=== PATIENT | female | born 1970 | race Caucasian/White ===

== ENCOUNTER → 2017-08-25 | Outpatient (CLI) | payer MEDICARE, OTHER ==
[~2017-08-25] MED LIST: ALBU90OI INH; ALPR.5 PO; AMOX500 PO; BUSP15 PO; CEFD300 PO; CHOL10002 PO; CODBUTACEC PO; CYCL10 PO; Compazine10 MG PO; Cymbalta30 MG; DOXY100 PO; DULO60; ESCI10 PO; GABA300 PO; GABA600 PO; HYDACE5; HYDACE5325 PO; HYDSUL200 PO; Hair, Skin & N1 EACH PO; INCARCERATION; MELO7.5 PO; META800 PO; METR500 PO; NAPR500 PO; NAPR550 PO; OXYACE5T PO; OXYACE7.5T PO; OXYC15ER; OXYC5 PO; PROB500 PO; PROM25 PO; RXHYDMOR2 PO; RXSULTRIDS PO; SULTRIDS PO; SULTRISS PO; Senna8.6 M1; TEMA15 PO; TOPI100 PO; TOPI50 PO; TRAM50 PO; VENL150ER PO; [UNRECOGNIZED DRUG - REMARK]
== END ==
LOC: LAB SHORT 11:51 → LAB EV 11:51
DX: M32.9 Systemic lupus erythematosus, unspecified (principal)
CPT/HCPCS: 87070; 87077; 87147; 87186; 87205; 87529

== ENCOUNTER 2017-11-16 08:49 | Emergency (ER) | payer MEDICARE, OTHER ==
[~2017-11-16] VITALS: Ht 165.1 cm; Wt 63.5 kg
[2017-11-16 10:08] LABS: BASOPHILS PERCENT AUTO 3 % (0-2); EOSINOPHILS ABSOLUTE AUTO 0.28 K/mm3 (0.00-0.68); EOSINOPHILS PERCENT AUTO 8 % (0-6); Hematocrit 42.7 % (33.0-51.0); Hemoglobin 14.1 g/dL (11.5-16.0); IMMATURE GRAN PERCENT AUTO 0 % (0-1); LYMPHOCYTES ABSOLUTE AUTO 0.86 K/mm3 (0.84-5.20); LYMPHOCYTES PERCENT AUTO 26 % (21-46); MONOCYTES ABSOLUTE AUTO 0.35 K/mm3 (0.16-1.47); MONOCYTES PERCENT AUTO 11 % (4-13); Mean Corpuscular HGB 32.6 pg (26.0-34.0); Mean Corpuscular Volume 99 fL (80-100); Mean Platelet Volume 10.2 fL (9.1-12.4); NEUTROPHILS ABSOLUTE AUTO 1.75 K/mm3 (1.96-9.15); NEUTROPHILS PERCENT AUTO 52 % (41-73); Platelet Count 270 K/mm3 (150-400); RDW Coefficient Variation 12.5 % (11.7-14.2); RDW Standard Deviation 46.2 fL (35.1-46.3); Red Blood Cell Count 4.32 M/mm3 (3.80-5.20); White Blood Cell Count 3.34 K/mm3 (4.00-11.30)
[2017-11-16] MEDS ORDERED: ASPI81CH PO (10:14)
[2017-11-16] MEDS ORDERED: OXYC5 PO (10:14)
[2017-11-16 10:15] LABS: Alanine Aminotransfer (ALT/SGP 36 U/L (12-78); Albumin, Blood 3.7 g/dL (3.4-5.0); Albumin/Globulin Ratio 1.3 (0.8-1.8); Alk Phos 65 U/L (50-136); Anion Gap 7 mmol/L (6-16); Aspartate Aminotrans (AST/SGOT 46 U/L (12-37); Bilirubin, Total 0.4 mg/dL (0.1-1.0); Blood Urea Nitrogen 8 mg/dL (8-24); CO2, Blood 28 mmol/L (21-32); Calcium, Blood 8.7 mg/dL (8.5-10.1); Chloride, Blood 107 mmol/L (98-108); Creatinine, Blood 0.67 mg/dL (0.40-1.00); Globulin, Blood 2.8 g/dL (2.2-4.0); Glomerular Filtration Rate >60 (60-); Glucose, Blood 86 mg/dL (70-99); Potassium, Blood 3.7 mmol/L (3.5-5.5); Sodium, Blood 142 mmol/L (136-145); Total Protein, Blood 6.5 g/dL (6.4-8.2); Troponin I <0.015 ng/mL (0.000-0.040)
[2017-11-16] MEDS ORDERED: Naprosyn500 MG PO (10:32)
== END 2017-11-16 10:52 | disposition home or self-care (01) ==
LOC: ER 08:49
PROVIDERS: Internal Medicine
DX: R53.83 Other fatigue (principal); R53.1 Weakness; M94.0 Chondrocostal junction syndrome [Tietze]; Z88.8 Allergy status to other drugs, medicaments and biological substances; Z79.899 Other long term (current) drug therapy; G43.909 Migraine, unspecified, not intractable, without status migrainosus; F32.9 Major depressive disorder, single episode, unspecified; F41.9 Anxiety disorder, unspecified; Z87.891 Personal history of nicotine dependence
CPT/HCPCS: 36415; 71046; 80053; 84484; 85025; 93005; 93010; 99283

== ENCOUNTER → 2018-06-22 | Outpatient (CLI) | payer MEDICARE, OTHER ==
[~2018-06-22] MED LIST changes: +ASPI81CH PO; +NARCAN4 MG; +Naprosyn500 MG PO; +Pantoprazole So40 MG PO
[2018-06-22 14:20] LABS: Alanine Aminotransfer (ALT/SGP 19 U/L (12-78); Albumin, Blood 3.7 g/dL (3.4-5.0); Albumin/Globulin Ratio 1.5 (0.8-1.8); Alk Phos 74 U/L (50-136); Anion Gap 7 mmol/L (6-16); Aspartate Aminotrans (AST/SGOT 18 U/L (12-37); Bilirubin, Total 0.4 mg/dL (0.1-1.0); Blood Urea Nitrogen 18 mg/dL (8-24); Bun/Creatinine Ratio 20.6 (12.0-20.0); CO2, Blood 28 mmol/L (21-32); Chloride, Blood 107 mmol/L (98-108); Creatinine, Blood 0.88 mg/dL (0.40-1.00); Globulin, Blood 2.5 g/dL (2.2-4.0); Glomerular Filtration Rate >60 (60-); Glucose, Blood 87 mg/dL (70-99); Potassium, Blood 3.9 mmol/L (3.5-5.5); Sodium, Blood 142 mmol/L (136-145); Total Protein, Blood 6.2 g/dL (6.4-8.2)
== END ==
LOC: LAB SHORT 13:45 → LAB 13:45
PROVIDERS: Nurse Practitioner Psychiatric/Mental Health
DX: R59.0 Localized enlarged lymph nodes (principal)
CPT/HCPCS: 80053

== ENCOUNTER 2018-07-03 05:07 | Emergency (ER) | payer MEDICARE, OTHER ==
[~2018-07-03] VITALS: Ht 165.1 cm; Wt 63.5 kg
[~2018-07-03 05:07] MED LIST changes: -NARCAN4 MG; -Pantoprazole So40 MG PO
[2018-07-03] MEDS ORDERED: Pantoprazole So40 MG PO (05:29)
[2018-07-03] MEDS ORDERED: PROM25 PO (05:29)
[2018-07-03] MEDS ORDERED: GABA300 PO (05:29)
[2018-07-03 06:07] LABS: BASOPHILS ABSOLUTE AUTO 0.08 K/mm3 (0.00-0.23); BASOPHILS PERCENT AUTO 2 % (0-2); EOSINOPHILS ABSOLUTE AUTO 0.26 K/mm3 (0.00-0.68); EOSINOPHILS PERCENT AUTO 6 % (0-6); Hematocrit 38.8 % (33.0-51.0); Hemoglobin 12.5 g/dL (11.5-16.0); IMMATURE GRAN PERCENT AUTO 0 % (0-1); LYMPHOCYTES ABSOLUTE AUTO 1.02 K/mm3 (0.84-5.20); LYMPHOCYTES PERCENT AUTO 25 % (21-46); MONOCYTES ABSOLUTE AUTO 0.49 K/mm3 (0.16-1.47); MONOCYTES PERCENT AUTO 12 % (4-13); Mean Corpuscular HGB 29.7 pg (26.0-34.0); Mean Corpuscular HGB Conc 32.2 g/dL (31.5-36.5); Mean Corpuscular Volume 92 fL (80-100); NEUTROPHILS ABSOLUTE AUTO 2.26 K/mm3 (1.96-9.15); NEUTROPHILS PERCENT AUTO 55 % (41-73); Platelet Count 257 K/mm3 (150-400); RDW Coefficient Variation 12.2 % (11.7-14.2); RDW Standard Deviation 41.1 fL (35.1-46.3); Red Blood Cell Count 4.21 M/mm3 (3.80-5.20); White Blood Cell Count 4.11 K/mm3 (4.00-11.30)
[2018-07-03 06:21] LABS: Alanine Aminotransfer (ALT/SGP 17 U/L (12-78); Albumin, Blood 3.3 g/dL (3.4-5.0); Albumin/Globulin Ratio 1.1 (0.8-1.8); Alk Phos 66 U/L (50-136); Anion Gap 7 mmol/L (6-16); Aspartate Aminotrans (AST/SGOT 18 U/L (12-37); Bilirubin, Total 0.5 mg/dL (0.1-1.0); Blood Urea Nitrogen 14 mg/dL (8-24); Bun/Creatinine Ratio 15.9 (12.0-20.0); CO2, Blood 27 mmol/L (21-32); Calcium, Blood 8.9 mg/dL (8.5-10.1); Chloride, Blood 108 mmol/L (98-108); Creatinine, Blood 0.88 mg/dL (0.40-1.00); Globulin, Blood 2.9 g/dL (2.2-4.0); Glomerular Filtration Rate >60 (60-); Glucose, Blood 83 mg/dL (70-99); Potassium, Blood 3.9 mmol/L (3.5-5.5); Sodium, Blood 142 mmol/L (136-145); Total Protein, Blood 6.2 g/dL (6.4-8.2)
[2018-07-03 07:22] LABS: Source, Urine Clean Catch
[2018-07-03 07:25] LABS: Bilirubin, Urine Neg (Neg); Blood, Urine Neg (Neg); Glucose Qualitative, Urine Neg (Neg); Ketones, Urine Neg (Neg); Leukocyte Esterase, Urine Neg (Neg); Nitrite, Urine Neg (Neg); Protein, Urine Neg (Neg); Specific Gravity, Urine 1.005 (1.003-1.022); Urobilinogen, Urine NORM (Normal)
[2018-07-03 07:30] LABS: Appearance, Urine Clear (Clear); Color, Urine Yellow (P-Yellow)
[2018-07-03] MEDS ORDERED: NARCAN4 MG (08:13)
== END 2018-07-03 08:20 | disposition home or self-care (01) ==
LOC: ER 05:07
PROVIDERS: Emergency Medicine
DX: R10.31 Right lower quadrant pain (principal); R59.0 Localized enlarged lymph nodes; Z88.8 Allergy status to other drugs, medicaments and biological substances; Z79.899 Other long term (current) drug therapy; F32.9 Major depressive disorder, single episode, unspecified; F41.9 Anxiety disorder, unspecified; Z87.891 Personal history of nicotine dependence
CPT/HCPCS: 36415; 80053; 81003; 85025; 96374; 99283-25; J1885

== ENCOUNTER 2018-07-22 22:25 | Emergency (ER) | payer MEDICARE, OTHER ==
[~2018-07-22] VITALS: Ht 165.1 cm; Wt 61.7 kg
[~2018-07-22 22:25] MED LIST changes: +NARCAN4 MG; +Pantoprazole So40 MG PO
[2018-07-22 23:10] LABS: BASOPHILS ABSOLUTE AUTO 0.12 K/mm3 (0.00-0.23); BASOPHILS PERCENT AUTO 2 % (0-2); EOSINOPHILS ABSOLUTE AUTO 0.27 K/mm3 (0.00-0.68); EOSINOPHILS PERCENT AUTO 4 % (0-6); Hematocrit 42.6 % (33.0-51.0); Hemoglobin 14.1 g/dL (11.5-16.0); IMMATURE GRAN ABSOLUTE AUTO 0.02 K/mm3 (0.00-0.10); IMMATURE GRAN PERCENT AUTO 0 % (0-1); LYMPHOCYTES ABSOLUTE AUTO 1.98 K/mm3 (0.84-5.20); LYMPHOCYTES PERCENT AUTO 31 % (21-46); MONOCYTES PERCENT AUTO 11 % (4-13); Mean Corpuscular HGB Conc 33.1 g/dL (31.5-36.5); Mean Corpuscular Volume 91 fL (80-100); Mean Platelet Volume 9.7 fL (9.1-12.4); NEUTROPHILS ABSOLUTE AUTO 3.33 K/mm3 (1.96-9.15); NEUTROPHILS PERCENT AUTO 52 % (41-73); Platelet Count 339 K/mm3 (150-400); RDW Coefficient Variation 11.7 % (11.7-14.2); RDW Standard Deviation 38.9 fL (35.1-46.3); White Blood Cell Count 6.42 K/mm3 (4.00-11.30)
[2018-07-22 23:38] LABS: Alanine Aminotransfer (ALT/SGP 21 U/L (12-78); Albumin/Globulin Ratio 1.2 (0.8-1.8); Alk Phos 94 U/L (50-136); Anion Gap 6 mmol/L (6-16); Aspartate Aminotrans (AST/SGOT 29 U/L (12-37); Bilirubin, Total 0.3 mg/dL (0.1-1.0); Blood Urea Nitrogen 11 mg/dL (8-24); Bun/Creatinine Ratio 14.4 (12.0-20.0); CO2, Blood 28 mmol/L (21-32); Calcium, Blood 9.5 mg/dL (8.5-10.1); Chloride, Blood 104 mmol/L (98-108); Creatinine, Blood 0.77 mg/dL (0.40-1.00); Globulin, Blood 3.4 g/dL (2.2-4.0); Glomerular Filtration Rate >60 (60-); Glucose, Blood 83 mg/dL (70-99); Potassium, Blood 3.9 mmol/L (3.5-5.5); Sodium, Blood 138 mmol/L (136-145); Total Protein, Blood 7.4 g/dL (6.4-8.2)
== END 2018-07-23 03:16 | disposition home or self-care (01) ==
LOC: ER 22:25
PROVIDERS: Emergency Medicine
DX: C21.8 Malignant neoplasm of overlapping sites of rectum, anus and anal canal (principal); C78.7 Secondary malignant neoplasm of liver and intrahepatic bile duct; F32.9 Major depressive disorder, single episode, unspecified; F41.9 Anxiety disorder, unspecified; Z88.8 Allergy status to other drugs, medicaments and biological substances; Z88.5 Allergy status to narcotic agent; Z79.899 Other long term (current) drug therapy; Z87.891 Personal history of nicotine dependence
CPT/HCPCS: 36415; 71046; 71260; 80053; 83690; 83880; 84484; 85025; 85379; 93005; 93010; 96374-59; 96375-59; 99285-25; J1170; J1885; Q9967

== ENCOUNTER 2018-08-01 17:43 | Emergency (ER) | payer MEDICARE, OTHER | END 2018-08-01 18:26 | disposition left against medical advice (07) | LOC: ER 17:43 | DX: Z53.21 Procedure and treatment not carried out due to patient leaving prior to being seen by health care provider (principal) ==

== ENCOUNTER 2018-08-05 15:18 | Emergency (ER) | payer MEDICARE, OTHER | END 2018-08-05 15:45 | disposition left against medical advice (07) | LOC: ER 15:18 | DX: Z53.21 Procedure and treatment not carried out due to patient leaving prior to being seen by health care provider (principal) ==

== ENCOUNTER 2018-11-16 07:14 | Emergency (ER) | payer MEDICARE, OTHER ==
[~2018-11-16] VITALS: Ht 165.1 cm; Wt 59.0 kg
[2018-11-16] MEDS ORDERED: DEXA4 PO (07:40)
[2018-11-16 07:53] LABS: BASOPHILS ABSOLUTE AUTO 0.08 K/mm3 (0.00-0.23); BASOPHILS PERCENT AUTO 2 % (0-2); EOSINOPHILS ABSOLUTE AUTO 0.03 K/mm3 (0.00-0.68); EOSINOPHILS PERCENT AUTO 1 % (0-6); Hematocrit 36.4 % (33.0-51.0); Hemoglobin 12.3 g/dL (11.5-16.0); IMMATURE GRAN ABSOLUTE AUTO 0.02 K/mm3 (0.00-0.10); IMMATURE GRAN PERCENT AUTO 0 % (0-1); LYMPHOCYTES ABSOLUTE AUTO 0.51 K/mm3 (0.84-5.20); LYMPHOCYTES PERCENT AUTO 9 % (21-46); MONOCYTES ABSOLUTE AUTO 0.61 K/mm3 (0.16-1.47); MONOCYTES PERCENT AUTO 11 % (4-13); Mean Corpuscular HGB 32.6 pg (26.0-34.0); Mean Corpuscular HGB Conc 33.8 g/dL (31.5-36.5); Mean Corpuscular Volume 97 fL (80-100); Mean Platelet Volume 9.9 fL (9.1-12.4); NEUTROPHILS ABSOLUTE AUTO 4.24 K/mm3 (1.96-9.15); NEUTROPHILS PERCENT AUTO 77 % (41-73); Platelet Count 204 K/mm3 (150-400); RDW Coefficient Variation 15.3 % (11.7-14.2); Red Blood Cell Count 3.77 M/mm3 (3.80-5.20); White Blood Cell Count 5.49 K/mm3 (4.00-11.30)
[2018-11-16 07:57] LABS: Source, Urine Clean Catch
[2018-11-16 08:01] LABS: Bilirubin, Urine Neg (Neg); Blood, Urine Neg (Neg); Glucose Qualitative, Urine Neg (Neg); Ketones, Urine 3+ (Neg); Leukocyte Esterase, Urine 1+ (Neg); Nitrite, Urine Neg (Neg); Protein, Urine 1+ (Neg); Urobilinogen, Urine NORM (Normal)
[2018-11-16 08:09] LABS: Appearance, Urine Clear (Clear); Color, Urine Yellow (P-Yellow)
[2018-11-16 08:10] LABS: Bacteria Rare /hpf; Red Blood Cells, Urine 0-2 /hpf (0-2); Squamous Epithelial Cells Rare /hpf (Few)
[2018-11-16 08:11] LABS: Mucus Light (0-Heavy)
[2018-11-16 08:13] LABS: Alanine Aminotransfer (ALT/SGP 29 U/L (12-78); Albumin, Blood 4.3 g/dL (3.4-5.0); Albumin/Globulin Ratio 1.2 (0.8-1.8); Alk Phos 113 U/L (50-136); Anion Gap 5 mmol/L (6-16); Aspartate Aminotrans (AST/SGOT 22 U/L (12-37); Bilirubin, Total 0.7 mg/dL (0.1-1.0); Blood Urea Nitrogen 8 mg/dL (8-24); Bun/Creatinine Ratio 11.8 (12.0-20.0); CO2, Blood 29 mmol/L (21-32); Calcium, Blood 9.6 mg/dL (8.5-10.1); Chloride, Blood 106 mmol/L (98-108); Creatinine, Blood 0.68 mg/dL (0.40-1.00); Globulin, Blood 3.5 g/dL (2.2-4.0); Glomerular Filtration Rate >60 (60-); Glucose, Blood 84 mg/dL (70-99); Potassium, Blood 3.4 mmol/L (3.5-5.5); Sodium, Blood 140 mmol/L (136-145); Total Protein, Blood 7.8 g/dL (6.4-8.2)
== END 2018-11-16 09:10 | disposition home or self-care (01) ==
LOC: ER 07:14
PROVIDERS: Emergency Medicine
DX: R10.13 Epigastric pain (principal); C22.8 Malignant neoplasm of liver, primary, unspecified as to type; Z88.8 Allergy status to other drugs, medicaments and biological substances; Z79.52 Long term (current) use of systemic steroids; G43.909 Migraine, unspecified, not intractable, without status migrainosus; F32.9 Major depressive disorder, single episode, unspecified; F41.9 Anxiety disorder, unspecified; Z87.891 Personal history of nicotine dependence
CPT/HCPCS: 36415; 80053; 81001; 83690; 85025; 87086; 96361; 96374; 99284-25; J1885; J7030

== ENCOUNTER 2018-12-23 18:52 | Emergency (ER) | payer MEDICARE, OTHER ==
[~2018-12-23] VITALS: Ht 165.1 cm; Wt 53.1 kg
[~2018-12-23 18:52] MED LIST changes: +DEXA4 PO
[2018-12-23 20:05] LABS: BASOPHILS ABSOLUTE AUTO 0.09 K/mm3 (0.00-0.23); BASOPHILS PERCENT AUTO 1 % (0-2); EOSINOPHILS ABSOLUTE AUTO 0.47 K/mm3 (0.00-0.68); EOSINOPHILS PERCENT AUTO 5 % (0-6); Hematocrit 30.6 % (33.0-51.0); Hemoglobin 9.8 g/dL (11.5-16.0); IMMATURE GRAN ABSOLUTE AUTO 0.03 K/mm3 (0.00-0.10); IMMATURE GRAN PERCENT AUTO 0 % (0-1); LYMPHOCYTES ABSOLUTE AUTO 0.76 K/mm3 (0.84-5.20); LYMPHOCYTES PERCENT AUTO 8 % (21-46); MONOCYTES ABSOLUTE AUTO 1.35 K/mm3 (0.16-1.47); MONOCYTES PERCENT AUTO 14 % (4-13); Mean Corpuscular HGB 29.6 pg (26.0-34.0); Mean Corpuscular Volume 92 fL (80-100); Mean Platelet Volume 9.3 fL (9.1-12.4); NEUTROPHILS ABSOLUTE AUTO 7.16 K/mm3 (1.96-9.15); NEUTROPHILS PERCENT AUTO 73 % (41-73); Platelet Count 438 K/mm3 (150-400); RDW Coefficient Variation 15.1 % (11.7-14.2); RDW Standard Deviation 50.9 fL (35.1-46.3); Red Blood Cell Count 3.31 M/mm3 (3.80-5.20); White Blood Cell Count 9.86 K/mm3 (4.00-11.30)
[2018-12-23] MEDS ORDERED: OXYC10TA19 PO (20:19)
[2018-12-23] MEDS ORDERED: IBUP400 PO (20:20)
[2018-12-23 20:26] LABS: Alanine Aminotransfer (ALT/SGP 54 U/L (12-78); Albumin, Blood 2.8 g/dL (3.4-5.0); Albumin/Globulin Ratio 0.6 (0.8-1.8); Alk Phos 210 U/L (50-136); Anion Gap 8 mmol/L (6-16); Aspartate Aminotrans (AST/SGOT 64 U/L (12-37); Bilirubin, Total 0.5 mg/dL (0.1-1.0); Blood Urea Nitrogen 13 mg/dL (8-24); Bun/Creatinine Ratio 19.6 (12.0-20.0); CO2, Blood 26 mmol/L (21-32); Calcium, Blood 8.9 mg/dL (8.5-10.1); Chloride, Blood 100 mmol/L (98-108); Creatinine, Blood 0.66 mg/dL (0.40-1.00); Globulin, Blood 4.4 g/dL (2.2-4.0); Glomerular Filtration Rate >60 (60-); Glucose, Blood 105 mg/dL (70-99); Potassium, Blood 4.1 mmol/L (3.5-5.5); Sodium, Blood 134 mmol/L (136-145); Total Protein, Blood 7.2 g/dL (6.4-8.2)
[2018-12-23 21:46] LABS: Source, Urine Clean Catch
[2018-12-23 21:50] LABS: Bilirubin, Urine Neg (Neg); Blood, Urine Neg (Neg); Glucose Qualitative, Urine Neg (Neg); Ketones, Urine 1+ (Neg); Leukocyte Esterase, Urine 1+ (Neg); Nitrite, Urine Neg (Neg); Protein, Urine Neg (Neg); Specific Gravity, Urine 1.015 (1.003-1.022); Urobilinogen, Urine NORM (Normal)
[2018-12-23 21:58] LABS: Appearance, Urine Clear (Clear); Color, Urine Yellow (P-Yellow)
[2018-12-23 21:59] LABS: Bacteria Mod /hpf; Red Blood Cells, Urine 0-2 /hpf (0-2); Squamous Epithelial Cells Few /hpf (Few); White Blood Cells, Urine 0-2 /hpf (0-5)
[2018-12-24 00:19] LABS: Adenovirus Not Detected (NOT DETECT); Bordetella pertussis Not Detected (NOT DETECT); Chlamydophila pneumoniae Not Detected (NOT DETECT); Coronavirus 229E Not Detected (NOT DETECT); Coronavirus HKU1 Not Detected (NOT DETECT); Coronavirus NL63 Not Detected (NOT DETECT); Coronavirus OC43 Not Detected (NOT DETECT); Human Metapneumovirus Not Detected (NOT DETECT); Human Rhinovirus/Enterovirus Not Detected (NOT DETECT); Influenza A Not Detected (NOT DETECT); Influenza A/2009-H1 Not Detected (NOT DETECT); Influenza A/H1 Not Detected (NOT DETECT); Influenza A/H3 Not Detected (NOT DETECT); Influenza B Not Detected (NOT DETECT); Mycoplasma pneumoniae Not Detected (NOT DETECT); Parainfluenza Virus 1 Not Detected (NOT DETECT); Parainfluenza Virus 2 Not Detected (NOT DETECT); Parainfluenza Virus 3 Not Detected (NOT DETECT); Parainfluenza Virus 4 Not Detected (NOT DETECT); Respiratory Syncytial Virus Not Detected (NOT DETECT)
== END 2018-12-24 00:01 | disposition home or self-care (01) ==
LOC: ER 18:52
PROVIDERS: Emergency Medicine
DX: E86.0 Dehydration (principal); Z85.038 Personal history of other malignant neoplasm of large intestine; Z88.8 Allergy status to other drugs, medicaments and biological substances
CPT/HCPCS: 0099U; 36415; 71046; 74177; 80053; 81001; 83605; 84145; 85025; 87040; 87086; 93005; 93010; 96361; 96374-59; 96375; 99284-25; J1170; J2550; J7030; Q9967

== ENCOUNTER 2019-02-02 18:20 | Inpatient (IN) | payer MEDICARE, OTHER ==
[~2019-02-02] VITALS: Ht 165.1 cm; Wt 54.5 kg
[~2019-02-02 18:20] MED LIST changes: +IBUP400 PO; +OXYC10TA19 PO
[2019-02-02 18:46] LABS: BASOPHILS ABSOLUTE AUTO 0.06 K/mm3 (0.00-0.23); BASOPHILS PERCENT AUTO 0 % (0-2); EOSINOPHILS PERCENT AUTO 2 % (0-6); Hematocrit 25.7 % (33.0-51.0); Hemoglobin 8.1 g/dL (11.5-16.0); IMMATURE GRAN ABSOLUTE AUTO 1.14 K/mm3 (0.00-0.10); IMMATURE GRAN PERCENT AUTO 3 % (0-1); LYMPHOCYTES ABSOLUTE AUTO 1.51 K/mm3 (0.84-5.20); LYMPHOCYTES PERCENT AUTO 4 % (21-46); MONOCYTES ABSOLUTE AUTO 1.82 K/mm3 (0.16-1.47); MONOCYTES PERCENT AUTO 5 % (4-13); Mean Corpuscular HGB 26.9 pg (26.0-34.0); Mean Corpuscular HGB Conc 31.5 g/dL (31.5-36.5); Mean Corpuscular Volume 85 fL (80-100); Mean Platelet Volume 11.7 fL (9.1-12.4); NEUTROPHILS ABSOLUTE AUTO 30.37 K/mm3 (1.96-9.15); NEUTROPHILS PERCENT AUTO 85 % (41-73); Platelet Count 215 K/mm3 (150-400); RDW Coefficient Variation 22.3 % (11.7-14.2); RDW Standard Deviation 67.2 fL (35.1-46.3); Red Blood Cell Count 3.01 M/mm3 (3.80-5.20)
[2019-02-02] MEDS ORDERED: PROC5 PO (19:03)
[2019-02-02] MEDS ORDERED: LORA.5 PO (19:03)
[2019-02-02] MEDS ORDERED: Protonix40 MG PO (19:03)
[2019-02-02] MEDS ORDERED: DEXA4 PO (19:03)
[2019-02-02 19:15] LABS: Alanine Aminotransfer (ALT/SGP 105 U/L (12-78); Albumin, Blood 1.9 g/dL (3.4-5.0); Albumin/Globulin Ratio 0.5 (0.8-1.8); Alk Phos 519 U/L (50-136); Anion Gap 9 mmol/L (6-16); Aspartate Aminotrans (AST/SGOT 100 U/L (12-37); Bilirubin, Total 1.6 mg/dL (0.1-1.0); Blood Urea Nitrogen 18 mg/dL (8-24); Bun/Creatinine Ratio 31.9 (12.0-20.0); CO2, Blood 26 mmol/L (21-32); Calcium, Blood 9.8 mg/dL (8.5-10.1); Chloride, Blood 101 mmol/L (98-108); Creatinine, Blood 0.56 mg/dL (0.40-1.00); Globulin, Blood 3.8 g/dL (2.2-4.0); Glomerular Filtration Rate >60 (60-); Glucose, Blood 91 mg/dL (70-99); Potassium, Blood 4.5 mmol/L (3.5-5.5); Sodium, Blood 136 mmol/L (136-145); Total Protein, Blood 5.7 g/dL (6.4-8.2)
[2019-02-02] MEDS ORDERED: ASCO500 PO (19:41)
[2019-02-02] MEDS ORDERED: MIRALAX17 GM PO (19:46)
[2019-02-02] MEDS ORDERED: Thera-M1 EACH PO (19:47)
[2019-02-02] MEDS ORDERED: VITAMIN D5000 UNI1 PO (19:48)
[2019-02-02] MEDS ORDERED: [UNRECOGNIZED DRUG - OTHER] PO (19:48)
[2019-02-02] MEDS ORDERED: Selenium50 MCG PO (19:50)
[2019-02-02] MEDS ORDERED: RESVERATROL PL1 EACH PO (19:51)
[2019-02-02] MEDS ORDERED: SAM E (19:52)
[2019-02-02] MEDS ORDERED: St. John's Wor300 M1 PO (19:54)
[2019-02-02] MEDS ORDERED: MAGNESIUM100 MG PO (19:55)
[2019-02-02 21:50] LABS: Source, Urine Catheter
[2019-02-02 21:53] LABS: Blood, Urine Neg (Neg); Glucose Qualitative, Urine Neg (Neg); Ketones, Urine 1+ (Neg); Leukocyte Esterase, Urine 1+ (Neg); Nitrite, Urine Neg (Neg); Protein, Urine 2+ (Neg); Urobilinogen, Urine 3+ (Normal)
[2019-02-02 21:55] LABS: Appearance, Urine Hazy (Clear); Bilirubin, Urine 1+ (Neg); Color, Urine Amber (P-Yellow)
[2019-02-02 22:00] LABS: Amorphous Light (0-Heavy); Bacteria Few /hpf; Mucus Mod (0-Heavy); Red Blood Cells, Urine Not Seen /hpf (0-2); Squamous Epithelial Cells Rare /hpf (Few)
--- NOTE | 2019-02-03 01:00 | NUR ---
PROVIDER CALLED ABOUT PAIN PT CONTINUES TO BE IN SIGNIFICANT PAIN. PROVIDER CALLED FOR MEDS FOR BACK SPASMS. ORDERS GIVEN. SEE EMAR.
--- NOTE | 2019-02-03 04:00 | NUR ---
HARNESS INSPECTOR PUMP ORDERED/STARTED PT CONTINUED TO BE IN SEVERE PAIN CALLING OUT IN ROOM. PROVIDER CONSULTED FOR FURTHER PAIN TREATMENT. HARNESS INSPECTOR PUMPED ORDERED AND SET UP. PT EDUCATED ON HARNESS INSPECTOR LIMITS AND HOW TO UTILIZE THE SELF DOSING BUTTON, AND ABOUT TIME OUTS. FAMILY IN ROOM ALSO EDUCATED ABOUT PT BEING THE ONLY ONE TO UTILIZE PAIN BUTTON. PT VVS AT THIS TIME. BP REMAINS LOW BUT MAP REMAINS >70. PT REPORTS PAIN STARTING TO DECREASED TO 9/10.
--- NOTE | 2019-02-03 06:34 | NUR ---
SHIFT SUMMARY PT SLEEPING IN ROOM AT THIS TIME. PT HAD NO ACUTE CHANGES IN STATUS BEYOND SEVER PAIN CONTROL. PT WAS PLACED ON A POT RUNNER MORPHINE PUMP IN ATTEMPT TO BETTER CONTROL PAIN. PT HAS STATED IN ROOM MULTIPLE TIMES "I AM READY, I DONT WANT TO FIGHT ANYMORE". PT EDUCATED THAT PALATIVE CARE WOULD BE COMING TO VISIT PT IN THE AM TO HELP PT MAKE FURTHER HEALTHCARE DECISIONS. RESP EVEN UNLABORED ON 2L NC W/ SATS >92%. O2 WAS PLACED FOR PT COMFORT, PT REPORTED BEING IN SO MUCH PAIN IT WAS HARD TO BREATH. FAMILY REMAINS IN ROOM. CALL LIGHT IS IN REACH.
--- NOTE | 2019-02-03 09:03 | NUR ---
Offered to reposition pt, she declined at this time due to pain and just getting comfortable. RN notified. Will offer again soon. Pt has call light in reach.
--- NOTE | 2019-02-03 09:45 | NUR ---
Pt visit this AM. Pt is resting in bed upon arrival. Pt's mother jiim and friends Tanisha and Brianna are present during visit. Pt reports 10/10 pain. She denies dyspnea and anxiety. Pt states "I'm ready to stop suffering" and "I'm ready for the end". Assessed her meaning of this statement and Pt reports she is ready for hospice. Educated on hospice and comfort care philosophy with V/U made by Pt. Due to Pt's unmanaged pain family prefered to have more comprehensive visit after orders have been placed and Pt is more comfortable. Family also requests for supervisor safety deposit visit. Spoke with bedside nurse More and discussed case. Spoke with caremanager Newell and discussed case. Spoke with Dr Mary and discussed case. Placed comfort care order, comfort care order set, added MS Contin 15mg PO Q 12 hours for pain, and discontinued Dilaudid and Valium per V/O from Dr Mary. Spoke with Palliative Care Egg Processing Supervisorsherine Camp and discussed case including request for sophie visit. Plan: Will contact [facility] and collaborate. Palliative Care will remain available for symptom management.
--- NOTE | 2019-02-03 10:58 | NUR ---
Patientis lying in bed and is weak and soft spoken. Patient's has 6 family members and friends bedside. Patient immediately shares that she is dying and is fearful that God will accept her. Upon learning about her belief system and her thoughts on the afterlife, I volunteer to pray with her. Patient agrees to prayer. I lead patient in a "sinner's prayer" and then pray for patient. I then pray for the tearful family and friends that are present. Patient responds with a statement that she feels much more peace and a family member says that she thought it was beautifiul. I will continue to remain available to patient and family.
--- NOTE | 2019-02-03 12:20 | NUR ---
pallative care and sophie has been in to see pt. going to change to comfort care at this time. pt still has pain, back spasms to upper back, will get her started on new meds as soon as available and continue product controller, lots of family in room, very supportive, pt wakes when spoke to, takes po meds with water without diff, will keep her as comfortable as possible.
--- NOTE | 2019-02-03 12:27 | NUR ---
pt was given lorazapam and oxycontin, she is feeling warm at this time, temp is 100.0. fan set up for her, and ice pack. she looks comfortable, with eyes closed at this time. call light in reach.
--- NOTE | 2019-02-03 13:15 | NUR ---
F/U visit this AM. Pt is resting in bed with her eyes closed upon arrival. Pt appears comfortable. Conferenced with family outside of Pt's room and answered questions. Encouraged family to consider highering a caregiver to help with care needs. Educated on signs and symptoms that Pt may experience. Relayed conversation this RN had with nurse from [facility]. [facility] has availability to admit Pt on service on Thursday. Nurse Radha also reports hospice will cover pain pump if necassary but recommends tapering Pt off pain pump if possible. She reports if needed to increase MS Contin to help manage pain. Spoke with bedside nurse More and discussed case. Per family request this RN called and spoke with Pt's brother Kami who is Pt's POA. Answere Kami's questions and emailed him a list of respite coordinator agencies per his request. Instructed Kami to call with any questions or concerns. Palliative Care will remain available.
--- NOTE | 2019-02-03 15:45 | NUR ---
pt has been changed to comfort care, is being transfered to medical floor with a large room to accomidate family. she has slept most of the day, waking when someone speaks to her. she seems to be more comfortable. left via bed with account executive trainee's in attendence. report was called to Hailey DEAL
--- NOTE | 2019-02-03 15:58 | NUR ---
TRANSFER NOTE RECEIVED HANDOFF REPORT FROM NURSE MOISÉS CURIEL. PT TRANSFERED TO MEDICAL FLOOR, FAMILY ACCOMPANYING. COMFORT CART FOR FAMILY ORDERED. PT AND FAMILY ORIENTED TO UNIT. I CALLED HOSPITALIST AND REQUESTED CLAY TEMPERER PUMP BE DC'D. HOSPITALIST AGREED.
--- NOTE | 2019-02-03 16:39 | NUR ---
SAPHIRE ACID CONCENTRATOR DISCONTINUED UPON ARRIVAL TO MEDICAL FLOOR. AMOUNT WASTED IN BAG WAS 18.5ML WITNESSED BY JORGE LUIS/PABLITO CASTAÑEDA/ASHLEY KOROMA. PT HAS GONE TO ORAL/AND IVP PAIN MEDICATIONS.
--- NOTE | 2019-02-03 18:17 | NUR ---
SHIFT SUMMARY PT BROUGHT UP FROM PCU TODAY. SHE HAS TODAY DECIDED TO BECOME COMFORT CARE. MANY FAMILY AND FRIENDS ARE IN THE ROOM. COMFORT CARE CART IS IN THE ROOM. WE HAVE DC'D THE ASSEMBLY REPAIRER PUMP. PT STATED THAT THE IV FENTANYL & ATIVAN ARE EFFECTIVE.
--- NOTE | 2019-02-03 22:48 | NUR ---
PATIENT LINEN DAMP FROM SWEAT. CHANGED ALL LINENS AND GAVE PAIN MEDICATION. PATIENT RESTING COMFORTABLY AFTER EATING FEW BITES OF MASHED POTATOES.
--- NOTE | 2019-02-04 02:21 | NUR ---
PATIENT RESTING COMFORTABLY IN BED
--- NOTE | 2019-02-04 06:28 | NUR ---
SHIFT SUMMARY NO ACUTE EVENTS OVERNIGHT. COMFORT CARE. PREFERS IV ATIVAN OVER SL ROXANOL FOR PAIN. UP SBA TO BATHROOM THIS AM TO BRUSH TEETH AND PERFORM ADLS. WILL CONTINUE TO MONITOR AND REPORT TO ON COMING NURSE.
--- NOTE | 2019-02-04 08:00 | NUR ---
SPOKE TO MOM, ANA. SHE STAYING IN ROOM. SHE STATES IS VERY HARD FOR HER TO HAVE DAUGHTER IN THIS CONDITION. CONSOLED. ORDERED NEW FRESH COFFEE/ PT AWAKE ORIENTED. STATES PAIN MUCH BETTER TODAY. MED PER EMAR. STATES MIGHT BE ABLE TO EAT SOME TODAY. ORDERED FOOD DIET. ADVISED MAY GO OUT TO SIT IN SUN CHOOSES. JUST LET ME KNOW WHEN LEAVES AND HELPFUL TO LEAVE PHONE # ON BOARD SO CAN CALL IF NEED. H/R REG, NO MURMER NOTED. NO TLE. LUNGS CLEAR, RESP EASY UNLABORED. ON R.A. HAS O2 AVAIL IF REQUEST. ABD MOD FIRM TENDER. STATES BM YEST. VOIDS PER BATHROOM. SBA. INFORMED MAY USE BSC IF WEAK. ASKED TO CALL IF ANY QUESTIONS, I AM AVAIL. FAMILY AT BEDSIDE. BED IN LOW POSITION, CALL LITE IN REACH, CALLS APPROP
--- NOTE | 2019-02-04 12:22 | NUR ---
PT EATING. STATES PAIN IN GOOD CONTROL. DENIES PAIN MED. FAMILLY PRESENT. NO OTHER CONCERNS AT THIS TIME. BED IN LOW POSITION, CALL LITE IN REACH. CALLS APPROP. ADVISED TO CALL ME IF PAIN BEGINS TO INCREASE.
--- NOTE | 2019-02-04 13:20 | NUR ---
PT REQUESTS NO MORE VISITORS TODAY UNTIL DINNER. NEEDS SLEEP. ATIVAN ADMIN. NOTE PLACED ON DOOR. PT STATES NEEDS MET. BED IN LOW POSITION, CALL LITE IN REACH, CALLS APPROP
--- NOTE | 2019-02-04 18:42 | NUR ---
PT VERY PLEASANT TODAY. PAIN WELL MANAGED WITH AVAIL MEDS. MOM AND MANY FAMILY FRIENDS IN ROOM TODAY. DID ASK ALL TO LEAVE FROM 2 TO 5PM. SHE SLEPT WELL. PT STATES PLEASED WITH PAIN CONTROL. NO OTHER CONCERNS AT THIS TIME. BED IN LOW POSITION, CALL LITE IN REACH, CALLS APPROP
--- NOTE | 2019-02-05 02:24 | NUR ---
PATIENT ASLEEP IN BED
--- NOTE | 2019-02-05 04:16 | NUR ---
patient resting in bed with eyes closed
--- NOTE | 2019-02-05 07:30 | NUR ---
PT PLEASANT COOP A/O. STATES REMAINS QUITE WEAK. VERY PLEASED ABOUT PAIN CONTROL YEST. HOPES CONTINUE TODAY. STATES IS BACK TO PRIOR ADMIT PAIN LEVEL. ATIVAN AND MS CONTIN APPEAR HELPS. H/R REG, LUNGS CLEAR. DISCUSSED PRESENT HOSPICE AND COMFORT CARE SITUATION. STATES PAIN SO BAD 2-3 DAYS AGO WAS QUITE WILLING TO . MUCH BETTER YEST AND TODDAY. CONTINUE TO MEDICATE PER AVAIL MEDS. PT AND MOTHER STATE MAY CONTINUE TO CHECK FURTHER OPTIONS FOR CANCER. NO OTHER CONCERNS AT THIS TIME. SPOKE TO DR LIVE AND WESLEY HEREDIA ABOUT OUR DISCUSSION. BED IN LOW [facility], CALL LITE IN REACH, CALLS APPROP
--- NOTE | 2019-02-05 09:30 | NUR ---
Pt visit this AM. Pt resting in bed upon arrival. She reports a tolerable 6/10 pain in her abdomen. Pt tearful at times and reports struggling with having cancer. She states knowing the cancer is not curative and is tired of suffering. She reports a planned family meeting and will discuss with family before making a decision and would like to continue comfort measures at this time. Educated Pt regarding hospice and hospice not being a permanent decision. Educated Pt of having the freedom to revoke hospice at any time she chooses. Pt also expresses concerns regarding her 2 sons and their well being once she is gone. Suggested to express her concerns with her children. Suggested she has loving family and friends that can continue support for them. Pt inquires about taking her Finn's Wart to help manage her depression. No other concerns reported at this time. Spoke with Dr Sandhu and placed order for home medication of Finn's Wart per V/O from Dr Sandhu. Spoke with bedside nurse Justin and discussed case. Palliative Care will remain available.
--- NOTE | 2019-02-05 14:20 | NUR ---
PT WAS OUT TO SIT IN SUN WITH FAMILY/FRIENDS. PT RETURNED IN PAIN. JERRY AND ATIVAN GIVEN. PT REQUEST SLEEP UNTIL DINNER. NEEDS REST. NOTE ON ROOM DOOR.
--- NOTE | 2019-02-05 16:06 | NUR ---
PT VERY PLEASANT TODAY, AGAIN, MANY VISITORS. DID CLOSE DOOR AND REQUEST NO VISITORS PER PT SINCERE REQUEST THIS AFT. PT EXPRESSED VERY TIRED AND LIKE TO REST UNTIL DINNER. DONE. ONE PERSON WAS TURNED AWAY AND LEFT ANGRY. PT HAD SON AND DOG IN TO VISIT TODAY. SHE QUITE PLEASED. NO OTHER CONCERNS AT THIS TIME. BED IN LOW POSITION, ALL LITE IN REACH, CALLS APPROP
--- NOTE | 2019-02-05 22:41 | NUR ---
PATIENT RESTING WITH EYES CLOSED IN BED
--- NOTE | 2019-02-06 05:49 | NUR ---
PATIENT RESTING COMFORTABLY IN BED WITH FAMILY SLEEPING IN ROOM.
--- NOTE | 2019-02-06 05:50 | NUR ---
PATIENT RESTING IN BED WITH EYES CLOSED
--- NOTE | 2019-02-06 05:50 | NUR ---
PATIENT RESTING IN BED WITHEYES CLOSED AND FAMILY AT BEDSIDE
--- NOTE | 2019-02-06 05:51 | NUR ---
SHIFT SUMMARY PATEINT SLEPT THROUGHOUT THE VISITOR SERVICES COORDINATOR WITH FAMILY AT BEDSIDE. NO COMPLAINTS OR ACUTE EVENTS OVERNIGHT. WILL CONTINUE TO MONITOR AND REPORT TO ONCOMING SHIFT
--- NOTE | 2019-02-06 10:26 | NUR ---
Comfort Care Visit: Pt resting in bed and reports pain is managed with current regimen. Pt tearful at times and offered emotional support. Listened as Pt reports plan for her brother to come tomorrow from [place] and is looking forward to his visit. Pt reports no other concerns at this time. Spoke with bedside nurse Raquel and she reports no concerns at this time. Palliative Care will remain available.
--- NOTE | 2019-02-06 18:57 | NUR ---
PT REMAINS ON COMFORT CARE, NO ACUTE CHANGES NOTED THIS SHIFT, WILL CONTINUE TO MONITOR AND REPORT TO ONCOMING RN
--- NOTE | 2019-02-06 19:23 | NUR ---
PATIENT IN BED WITH EYES CLOSED.
--- NOTE | 2019-02-06 22:51 | NUR ---
PATIENT RESTING IN BED WITH EYES CLOSED
--- NOTE | 2019-02-07 03:28 | NUR ---
WITNESSED PATIENT IN BED WITH EYES CLOSED. NO S/S OF DISTRESS OR PAIN. WILL CONTINUE TO MONITOR.
--- NOTE | 2019-02-07 06:19 | NUR ---
SHIFT SUMMARY PATIENT SLEPT THROUGHOUT THE NIGHT. PATIENT REQUESTED PAIN MEDICATION WHEN WOKEN FOR MORNING MEDS. MEDICATIONS ORDERED. WILL CONTINUE TO MONITOR AND REPORT TO ONCOMING SHIFT.
--- NOTE | 2019-02-07 09:38 | NUR ---
PT EMOTIONAL THIS MORNING, REQUESTING A VISIT FROM SPIRITUAL CARE. SP CALLED AND GIORGI WILL BE UP TO SEE PT
--- NOTE | 2019-02-07 11:01 | NUR ---
Patient requested a visit from spiritual care so I sat down with patient. Patient is weak and soft spoken. As soon as I sat down patient began to cry. Patient tells me that she is afraid. We took time to unpack what specific areas of fear that she has. The three main fears she spoke about are; fear that her 20 year old son will self destruct because of her , fear that her family will experience undue grief because of her suffering and and that she will be forgotten (just as she has begun to forget certain things about her father after his ). There is also some spiritual areas of distress that we discussed as well. I provided pastoral corporate counselor, normalized her experience and provided emoational support and prayer. Patient responds well and showed signs of catharsis and reduced stress. I will continue to remain availabable to patient and family.
--- NOTE | 2019-02-08 04:16 | NUR ---
HEAD ESTHETICIAN SUMMARY NO ACUTE CHANGES THIS SHIFT. PT AAOX4 AND A STANDBY ASSIST TO THE BATHROOM. PT REMAINS ON COMFORT CARE. MEDICATED WITH SCHEDULED MS CONTIN PER EMAR WELL PRN ROXANOL. PT REPORTS PAIN IN ABD. PT DENIES N/V, SOB. PT HAS SLEPT WELL THROUGH MOST OF THE NIGHT. PT FAMILY MEMBER AT BEDSIDE THROUGH THE NIGHT, ASSISTS PT TO BATHROOM WHEN NEEDED.
[2019-02-08] MEDS ORDERED: LORA1 PO (09:30)
[2019-02-08] MEDS ORDERED: MORP20L PO (09:31)
[2019-02-08] MEDS ORDERED: St. John's Wor300 MG PO (09:32)
[2019-02-08] MEDS ORDERED: ATROPINE SULFATE2 ML SL (09:33)
[2019-02-08] MEDS ORDERED: Transderm-Scop1 EACH TD (09:33)
[2019-02-08] MEDS ORDERED: SAM E PO (09:34)
--- NOTE | 2019-02-08 11:00 | NUR ---
DISCHARGE INSTRUCTIONS COMPLETED AND SPOKE WITH FAMILY ABOUT DISCHARGE MED LIST AND INSTRUCTIONS AND ABOUT WHAT HOSPICE WOULD ASSIST IN FACILITATING. MEDICATED WITH ROXONAL AND ATIVAN PRIOR TO LEAVING FOR [facility] HOME. MOTHER AND BROTHER COLLECTED BELONGINGS AND PT DISCHARGED TO HOME IN THEIR CARE BY PRIVATE CAR.
--- NOTE | 2019-02-08 17:41 | NUR ---
Spiritual Care routine visit: Erika and I met privately. She shared her concerns/fears/regrets. She was often tearful. She responded well to gentle breastfeeding peer counselor. Letters of reconciliation written on her dictation by me. Lengthy visit with good effect. Erika appeared more peaceful and visit concluded. Provided anticipatory bereavement breastfeeding peer counselor to Erika's mom outside of room. Erika was taken home by family with hospice services.
== END 2019-02-08 10:48 | disposition hospice, home (50) | DRG 436 ==
LOC: ER 18:20 → PCU 23:12 → MEDS 02-03 15:55 → ENPENDDIS 02-08 10:30 → MEDS 02-08 10:48
PROVIDERS: Emergency Medicine; ADMIT Internal Medicine
DX: C78.7 Secondary malignant neoplasm of liver and intrahepatic bile duct (principal); C77.2 Secondary and unspecified malignant neoplasm of intra-abdominal lymph nodes; C77.5 Secondary and unspecified malignant neoplasm of intrapelvic lymph nodes; Z51.5 Encounter for palliative care; M32.9 Systemic lupus erythematosus, unspecified
CPT/HCPCS: 36415; 71045; 74177; 76705; 80053; 81001; 83605; 83690; 85025; 87040; 87086; 96361; 96365-59; 96375; 96376; 99285-25; C9113; J1170; J2060; J2270; J2543; J3010; J3360; J7030; P9612; Q9967